=== PATIENT | female | born 1990 | race African-American/Black ===

== ENCOUNTER → 2016-12-29 | Outpatient (CLI) | payer MEDICAID ==
[~2016-12-29] MED LIST: CEPH-460 PO; CEPH500C PO; DOXY10TA PO; FERR325T PO; FOLI400T PO; IBUP-232 PO; LABE100T2 PO; NORG1TAB28 PO; ONDA1TAB16 PO; PRENTAB36 PO; SENN1TAB PO
== END ==
LOC: HPND 09:21
PROVIDERS: ATTEND Family Medicine
DX: Z34.90 Encounter for supervision of normal pregnancy, unspecified, unspecified trimester (principal)
CPT/HCPCS: 76816

== ENCOUNTER 2017-01-23 16:34 | Emergency (ER) | payer MEDICAID ==
[~2017-01-23] VITALS: Ht 165.1 cm; Wt 115.0 kg
[~2017-01-23 16:34] MED LIST changes: -CEPH-460 PO; -IBUP-232 PO; -LABE100T2 PO; -NORG1TAB28 PO; -SENN1TAB PO
--- NOTE | 2017-01-23 19:32 | PD ---
HPI Chief Complaint: Lump, Cyst, Hernia Time Seen by Provider: 19:31 Travel History International Travel<30 days: No Contact w/Intl Traveler<30days: No Traveled to known affect area: No History of Present Illness HPI Patient comes in complaining of a painful right breast lump that she first noticed 3 days ago. Patient states it has progressively got larger more painful. Patient denies any drainage with this, discharge, fevers, or doing anything for it. Patient states she is 8 months has not contacted her OB about this. Denies anything making it better. Touching makes the pain worse. Pain is pressure-like in nature. Without radiation. PFSH Past Medical History Asthma: No Blood Disorders: No Cancer: No Cardiovascular Problems: No Diminished Hearing: No Endocrine: No Gastrointestinal Disorders: No Genitourinary: No Immune Disorder: No Musculoskeletal: No Neurologic: No Psychiatric: No Reproductive: No Respiratory: No Immunizations Current: Yes Tetanus Vaccination: Unknown Influenza Vaccination: No ?: LMP: MAY : 2 Para: 0 Miscarriage: 1 : 1 Past Surgical History Oral Surgery: Yes (FRACTURES JAW WITH PLATES AND WIRES.) Pacemaker: No Other Surgery: No Social History Alcohol Use: Yes Tobacco Use: No Substance Use: No Allergies-Medications (Allergen,Severity, Reaction): Coded Allergies: No Known Allergies (Verified , 01/23/17) Reported Meds & Prescriptions Reported Meds & Active Scripts Active Keflex (Cephalexin) 500 Mg Cap 500 Mg PO Q8H 7 Days Forte ( Multivit-Min W/Fe-FA) 1 Tab Tab 1 Tab PO DAILY 90 Days Review of Systems Except as stated in HPI: all other systems reviewed are Neg Physical Exam Narrative GENERAL: Well-developed, well nourished, in no acute distress, and non-ill appearing. SKIN: Warm and dry. Tender fluctuant mass noted right breast superior to the areola. There is no drainage. Exam was performed in presence of catering staff member Elsy at all times. HEAD: Atraumatic. Normocephalic. EYES: Pupils equal and round. EOMI. No scleral icterus. No injection or drainage. ENT: No nasal bleeding or discharge. Mucous membranes pink and moist. NECK: Trachea midline. Supple. No nuclear rigidity. RESPIRATORY: No accessory muscle use. No respiratory distress. MUSCULOSKELETAL: No obvious deformities. No clubbing. No cyanosis. No edema. Full range of motion. NEUROLOGICAL: Awake and alert. No obvious cranial nerve deficits. Motor grossly within normal limits. Normal speech. PSYCHIATRIC: Appropriate mood and affect; insight and judgment normal. Data Data Last Documented VS Vital Signs Date Time Temp Pulse Resp B/P Pulse Ox O2 Delivery O2 Flow Rate FiO2 01/23/17 19:39 98.5 87 16 149/84 100 Room Air Orders Wound Culture And Gram Stain (01/23/17 19:29) MDM Medical Decision Making Medical Screen Exam Complete: Yes Emergency Medical Condition: Yes Differential Diagnosis Abscess, cellulitis, mastitis, fibroid, infected mammillary duct, other Narrative Course The patient has no evidence of significant cellulitis. There is no evidence of necrotizing fasciitis/ Forneys at this time. The patient will be discharged on antibiotics. The patient was given signs and symptoms warnings for worsening infection, such as spreading of redness, increasing pain, and/or swelling, associated heat, or fever or feels worse, and instructed to return immediately if these signs or symptoms worsen. The patient is to return in 2 days for recheck. Sooner if worsens or as needed. The patient agrees with plan. Patient in no obvious distress upon re-evaluation. Patient was asked if they wanted to speak to my attending, which the patient did not wish to do at this time. Any questions/concerns in reference to patient diagnosis/condition discussed and clarified prior to patient's discharge. Reinforced sheer importance of close follow up with patient's primary physician or primary care clinic or return here in 2 days for recheck. Instructed patient to return to ED immediately, if symptoms return/worsen. Pt showed understanding of above instructions. Further instructions and recommendations were detailed in discharge paperwork. Pt ambulated without difficulty out of ED at discharge. Procedures Procedure Narrative Verbal consent was obtained. Area was cleaned and prepped using Betadine. Area was anesthetized using ethyl chloride spray. 16-gauge needle was used to make a small puncture wound. Small amount of blood and no acute drainage was noted. Patient tolerated procedure well. There is no complications. Procedure was done in presence of catering staff member Elsy at all times. Diagnosis Primary Impression: Breast infection in Patient Instructions: Abscess (GEN), General Instructions Additional Instructions: Follow-up with your OB return in 2 days for recheck. Take all medication as prescribed. Use [id number] Tylenol as needed for pain control. Follow instructions on the packaging. Apply warm compresses to affected area frequently throughout the day. Return to the emergency department if symptoms get worse. Med/Other Pt SpecificInfo: Prescription(s) given Scripts Cephalexin (Keflex)500 Mg [id number] Mg PO Q8H 7 Days Ref 0 Prov:Monique Arteaga DO 01/23/17 Disposition: 01 DISCHARGE HOME Condition: Stable Jovanni [place] Jan 23, 2017 19:32
[2017-01-23 19:39] VITALS: BP 149/84; PULSE 87; RESP 16; TEMP 98.5; O2SAT 100
[2017-01-23] MEDS ORDERED: CEPH-460 PO (19:54)
[2017-04-05] MEDS ORDERED: NORG1TAB28 PO (16:20)
[2017-04-05] MEDS ORDERED: LABE100T2 PO (16:22)
== END 2017-01-23 20:31 | disposition home or self-care (01) ==
LOC: NEPB 16:34
DX: O91.213 Nonpurulent mastitis associated with pregnancy, third trimester (principal); B95.7 Other staphylococcus as the cause of diseases classified elsewhere; Z3A.00 Weeks of gestation of pregnancy not specified
CPT/HCPCS: 10140; 87070; 87077; 87186; 87205

== ENCOUNTER 2017-02-23 19:43 | Inpatient (IN) | payer MEDICAID ==
[2017-02-23] VITALS (18 sets, daily range): BP systolic 126–157; BP diastolic 74–116; PULSE 91–107; RESP 16–20; TEMP 97.9
[~2017-02-23 19:43] MED LIST changes: -CEPH500C PO; -DOXY10TA PO; -FERR325T PO; -FOLI400T PO; -ONDA1TAB16 PO
[2017-02-23] MEDS ORDERED: LACTATED RINGER'S 1000 ML INJ 1,000 ML IV PRN (20:09)
[2017-02-23] MEDS ORDERED: LACTATED RINGER'S 1000 ML INJ 1,000 ML IV SCH (20:09)
[2017-02-23] MEDS ORDERED: MINERAL OIL 10 ML VIAL TOPICAL PRN (20:15)
[2017-02-23] MEDS ORDERED: LIDOCAINE HCL 1% 50 ML VIAL INFIL PRN (20:15)
[2017-02-23] MEDS ORDERED: OXYTOCIN 30 UNITS-500ML PREMIX 500 ML IV ONE (20:15)
[2017-02-23] MEDS ORDERED: LIDOCAINE HCL 1% 50 ML VIAL I-DERMAL PRN (20:15)
[2017-02-23] MEDS ORDERED: SODIUM CHLORID 0.9% 500 ML INJ 500 ML IV PRN (20:15)
[2017-02-23] MEDS ORDERED: CITRIC ACID-SODIUM CITRATE LIQ 30 ML UDC PO SCH (20:15)
[2017-02-23] MEDS ORDERED: SODIUM CHLOR 0.9% 1000 ML INJ 1,000 ML IV PRN (20:29)
--- NOTE | 2017-02-23 20:44 | PD ---
HPI Chief Complaint Contractions Date Seen: Feb 23, 2017 Time Seen: 20:23 Travel History International Travel<30 Days: No Contact w/Intl Traveler<30Days: No History of Present Illness HPI 26 year old at 37/1 by second trimester US, done at 15 weeks, presents to the OB ED with a 3 hour history of contractions. Patient denies ROM, vaginal bleeding. She states the pain comes and goes and does not know how often her contractions occur. She was seen in clinic one week ago and had 300+ protein in her urine with leg swelling and a pre-eclamptic workup was ordered. The patient had these labs done today. She is hypertensive on arrival to the ED with a BP of 143/96. Patient admits to doing cocaine 2 weeks ago and flocca 1 week ago. Smokes 1/2 ppd. Daily MJ. She is GBS positive. Para: 0 : 1 History Past Medical History Medical History: Denies Significant Hx Obstetric History Obstetric History Past Surgical History Narrative Surgical Jaw surgery Family History Narrative Family History Noncontributory Social History Alcohol Use: No Tobacco Use: Yes (1/2 ppd) Substance Abuse: Yes (cocaine and flocca) Allergies-Medications (Allergen,Severity, Reaction): Coded Allergies: No Known Allergies (Verified , 02/17/17) Home Meds Active Scripts Multivit-Min W/Fe-FA ( Forte)1 Tab Tab1 Tab PO DAILY 90 Days Ref 3 Prov:Seven Dover MD 09/16/16 Discontinued Scripts Cephalexin (Keflex)500 Mg [id number] Mg PO Q8H 7 Days Ref 0 Prov:Monique Arteaga DO 01/23/17 Review of Systems General / Constitutional: No: Fever Eyes: No: Blurred Vision HENT: No: Headaches Cardiovascular: No: Chest Pain or Discomfort Respiratory: No: Short of Breath Gastrointestinal: No: Nausea, Vomiting Genitourinary: No: Dysuria Musculoskeletal: Edema, No: Weakness Skin: No Rash Neurologic: No: Weakness Endocrine: No: Polydipsia, Polyuria Hematologic/Lymphatic: No Easy Bruising Physical Exam Vital Signs Date Time Temp Pulse Resp B/P Pulse Ox O2 Delivery O2 Flow Rate FiO2 02/23/17 20:03 97.9 18 02/23/17 20:03 98 148/116 02/23/17 20:00 107 Narrative GENERAL: Well-nourished, well-developed patient. SKIN: Warm and dry. HEAD: Normocephalic and atraumatic. EYES: No scleral icterus. No injection or drainage. ENT: No nasal drainage noted. Mucous membranes pink. Airway patent. NECK: Supple, trachea midline. No JVD. CARDIOVASCULAR: Regular rate and rhythm without murmurs, gallops, or rubs. RESPIRATORY: Breath sounds equal bilaterally. No accessory muscle use. BREASTS: Bilateral exam showed no masses , no retractions, no nipple discharge. ABDOMEN/GI: Abdomen soft, non-tender, bowel sounds present, no rebound, no guarding Gravid to [37] weeks size GENITOURINARY: External Genitalia: intact with vaginal warts Cervix: [posterior] Dilatation: [1] Effacement: [70%] Station: [-2] Presentation: [v] Membranes: [intact] Uterine Contractions: [q5m] FHT's: Category: [II] Baseline: [150] Reactive: [y] Variability: [variables c contractions] Decels: [n] EXTREMITIES: No cyanosis. Bilateral LE edema. BACK: Nontender without obvious deformity. No CVA tenderness. NEUROLOGICAL: Awake and alert. Motor and sensory grossly within normal limits. Five out of 5 muscle strength in all muscle groups. Normal speech. Data Data Orders Vital Signs (Adult) .ON ADMISSION (02/23/17 20:01) ^ Labor Status (02/23/17 20:01) Urinalysis - C+S If Indicated (02/23/17 20:01) ^ Hydration (02/23/17 20:) Admit To Inpatient (02/23/17 ) Code Status (02/23/17 20:09) Vital Signs (Adult) .Per protocol (02/23/17 20:09) Activity Oob Ad Clary (02/23/17 20:09) Heart (02/23/17 20:09) Amnioinfusion (02/23/17 20:09) Urinary Catheter Management .ONCE (02/23/17 20:09) Diet Liquid (02/24/17 Breakfast) Lactated Ringer's 1000 Ml Inj (Lr 1000 M (02/23/17 20:09) Lactated Ringer's 1000 Ml Inj (Lr 1000 M (02/23/17 20:09) Sodium Chlorid 0.9% 500 Ml Inj (Ns 500 M (02/23/17 20:15) Sodium Chlor 0.9% 1000 Ml Inj (Ns 1000 M (02/23/17 20:29) Lidocaine 1% Inj (50 Ml) (Xylocaine 1% I (02/23/17 20:15) Citric Acid-Sodium Citrate Liq (Bicitra (02/23/17 20:15) Fentanyl Inj (Fentanyl Inj) (02/23/17 20:15) Fentanyl Inj (Fentanyl Inj) (02/23/17 20:15) Complete Blood Count With Diff (02/23/17 20:09) Hold Clot (02/23/17 20:09) Abo/Rh Blood Type (02/23/17 20:09) Type And Screen (02/23/17 20:09) Resp Oxygen Non Rebreathe Mask (02/23/17 ) ^ Epidural / Intrathecal Infus (02/23/17 20:09) Oxytocin 30 Units-500ml Premix (Pitocin (02/23/17 20:15) Lidocaine 1% Inj (50 Ml) (Xylocaine 1% I (02/23/17 20:15) Light Mineral Oil (Muri-Lube Oil) (02/23/17 20:15) Inpatient Certification (02/23/17 ) Comprehensive Metabolic Panel (02/23/17 20:09) Uric Acid (02/23/17 20:09) Ob/Psych Drug Screen, Urine (02/23/17 20:09) Protein Creat Ratio, Random Ur (02/23/17 20:15) MDM Medical Record Reviewed: Yes Interpretation(s) Variable decelerations HTN Drug abuse Plan 26 yo GBS positive, hypertensive with variable decelerations. GBS positive. -UA positive for UTI -Pre-eclampsia work up: CMP, CBC, Uric acid and urine protein/creatinine ratio -Vitals q 15 min -IVF hydration -Admit to L&D for continuous monitoring Diagnosis Diagnosis: Primary Impression: Uterine contractions during Additional Impressions: Hypertension during Drug abuse Condition: Stable Carolyn Bryson MD R3 Feb 23, 2017 20:44
[2017-02-23 20:57] LABS: BACTERIA, URINE RARE /hpf; BLOOD, URINE NEG (NEG); COMMENT (UR) CULTURE INDICATED; CULTURE IF INDICATED CULTURE INDICATED; GLUCOSE,URINE NEG (NEG); KETONE, URINE 150 mg/dL (NEG); MUCUS URINE MOD /lpf (OCC); NITRITE,URINE NEG (NEG); SQUAMOUS EPITHELIAL CELL URINE 20 /hpf (0-5); URINE COLOR DARK-YELLOW (YELLW/STRAW)
[2017-02-23 20:58] LABS: AUTOMATED NEUTROPHIL # 4.4 TH/MM3 (1.8-7.7); BASOPHIL # 0.1 TH/MM3 (0-0.2); BASOPHIL % 1.2 % (0.0-2.0); EOSINOPHIL % 0.5 % (0.0-4.0); HEMATOCRIT 31.3 % (35.0-46.0); HEMO FLAGS DIFF FINAL; LYMPH % 24.7 % (9.0-44.0); LYMPHOCYTE # 1.7 TH/MM3 (1.0-4.8); MEAN CELL VOLUME 83.9 FL (80.0-100.0); MEAN CORPUSCULAR HGB CONC 34.5 % (32.0-36.0); MONO % 10.7 % (0.0-8.0); NEUT % 62.9 % (16.0-70.0); PLATELET COUNT 401 TH/MM3 (150-450); RED BLOOD COUNT 3.73 MIL/MM3 (4.00-5.30); RED CELL DISTRIBUTION WIDTH 13.2 % (11.6-17.2); WHITE BLOOD COUNT 6.9 TH/MM3 (4.0-11.0)
[2017-02-23 21:01] LABS: AMPHETAMINE, URINE NEG (NEG); BARBITURATES, URINE NEG (NEG); COCAINE, URINE NEG (NEG)
[2017-02-23 21:25] LABS: ALKALINE PHOSPHATASE 167 U/L (45-117); ALT (GPT) 10 U/L (10-53); ANION GAP 12 MEQ/L (5-15); AST (GOT) 22 U/L (15-37); BICARBONATE 23.4 MEQ/L (21.0-32.0); BLOOD UREA NITROGEN 4 MG/DL (7-18); CHLORIDE 101 MEQ/L (98-107); GLOMERULAR FILTRATION RATE 159 ML/MIN (>89); SODIUM (NA) 136 MEQ/L (136-145); TOTAL BILIRUBIN ADULT 0.6 MG/DL (0.2-1.0); URIC ACID 5.5 MG/DL (2.6-6.0)
--- NOTE | 2017-02-23 21:27 | HHI.HP ---
History & Physical H&P HPI Chief Complaint Contractions Date Seen: Feb 23, 2017 Time Seen: 20:23 Travel History International Travel<30 Days: No Contact w/Intl Traveler<30Days: No History of Present Illness HPI 26 year old at 37/1 by second trimester US, done at 15 weeks, presents to the OB ED with a 3 hour history of contractions. Patient denies ROM, vaginal bleeding. She states the pain comes and goes and does not know how often her contractions occur. She was seen in clinic one week ago and had 300+ protein in her urine with leg swelling and a pre-eclamptic workup was ordered. The patient had these labs done today. She is hypertensive on arrival to the ED with a BP of 143/96. Patient admits to doing cocaine 2 weeks ago and flocca 1 week ago. Smokes 1/2 ppd. Daily MJ. She is GBS positive. Para: 0 : 1 History Past Medical History Medical History: Denies Significant Hx Obstetric History Obstetric History Past Surgical History Narrative Surgical Jaw surgery Family History Narrative Family History Noncontributory Social History Alcohol Use: No Tobacco Use: Yes (1/2 ppd) Substance Abuse: Yes (cocaine and flocca) Allergies-Medications (Allergen,Severity, Reaction): Coded Allergies: No Known Allergies (Verified , 02/17/17) Home Meds Active Scripts Multivit-Min W/Fe-FA ( Forte)1 Tab Tab1 Tab PO DAILY 90 Days Ref 3 Prov:Seven Dover MD 09/16/16 Discontinued Scripts Cephalexin (Keflex)500 Mg [id number] Mg PO Q8H 7 Days Ref 0 Prov:Monique Arteaga DO 01/23/17 Review of Systems General / Constitutional: No: Fever Eyes: No: Blurred Vision HENT: No: Headaches Cardiovascular: No: Chest Pain or Discomfort Respiratory: No: Short of Breath Gastrointestinal: No: Nausea, Vomiting Genitourinary: No: Dysuria Musculoskeletal: Edema, No: Weakness Skin: No Rash Neurologic: No: Weakness Endocrine: No: Polydipsia, Polyuria Hematologic/Lymphatic: No Easy Bruising Physical Exam Vital Signs Date Time Temp Pulse Resp B/P Pulse Ox O2 Delivery O2 Flow Rate FiO2 02/23/17 20:03 97.9 18 02/23/17 20:03 98 148/116 02/23/17 20:00 107 Narrative GENERAL: Well-nourished, well-developed patient. SKIN: Warm and dry. HEAD: Normocephalic and atraumatic. EYES: No scleral icterus. No injection or drainage. ENT: No nasal drainage noted. Mucous membranes pink. Airway patent. NECK: Supple, trachea midline. No JVD. CARDIOVASCULAR: Regular rate and rhythm without murmurs, gallops, or rubs. RESPIRATORY: Breath sounds equal bilaterally. No accessory muscle use. BREASTS: Bilateral exam showed no masses , no retractions, no nipple discharge. ABDOMEN/GI: Abdomen soft, non-tender, bowel sounds present, no rebound, no guarding Gravid to [37] weeks size GENITOURINARY: External Genitalia: intact with vaginal warts Cervix: [posterior] Dilatation: [1] Effacement: [70%] Station: [-2] Presentation: [v] Membranes: [intact] Uterine Contractions: [q5m] FHT's: Category: [II] Baseline: [150] Reactive: [y] Variability: [variables c contractions] Decels: [n] EXTREMITIES: No cyanosis. Bilateral LE edema. BACK: Nontender without obvious deformity. No CVA tenderness. NEUROLOGICAL: Awake and alert. Motor and sensory grossly within normal limits. Five out of 5 muscle strength in all muscle groups. Normal speech. Data Data Orders Vital Signs (Adult) .ON ADMISSION (02/23/17 20:01) ^ Labor Status (02/23/17 20:01) Urinalysis - C+S If Indicated (02/23/17 20:01) ^ Hydration (02/23/17 20:01) Admit To Inpatient (02/23/17 ) Code Status (02/23/17 20:09) Vital Signs (Adult) .Per protocol (02/23/17 20:09) Activity Oob Ad Clary (02/23/17 20:09) Heart (02/23/17 20:09) Amnioinfusion (02/23/17 20:09) Urinary Catheter Management .ONCE (02/23/17 20:09) Diet Liquid (02/24/17 Breakfast) Lactated Ringer's 1000 Ml Inj (Lr 1000 M (02/23/17 20:09) Lactated Ringer's 1000 Ml Inj (Lr 1000 M (02/23/17 20:09) Sodium Chlorid 0.9% 500 Ml Inj (Ns 500 M (02/23/17 20:15) Sodium Chlor 0.9% 1000 Ml Inj (Ns 1000 M (02/23/17 20:29) Lidocaine 1% Inj (50 Ml) (Xylocaine 1% I (02/23/17 20:15) Citric Acid-Sodium Citrate Liq (Bicitra (02/23/17 20:15) Fentanyl Inj (Fentanyl Inj) (02/23/17 20:15) Fentanyl Inj (Fentanyl Inj) (02/23/17 20:15) Complete Blood Count With Diff (02/23/17 20:09) Hold Clot (02/23/17 20:09) Abo/Rh Blood Type (02/23/17 20:09) Type And Screen (02/23/17 20:09) Resp Oxygen Non Rebreathe Mask (02/23/17 ) ^ Epidural / Intrathecal Infus (02/23/17 20:09) Oxytocin 30 Units-500ml Premix (Pitocin (02/23/17 20:15) Lidocaine 1% Inj (50 Ml) (Xylocaine 1% I (02/23/17 20:15) Light Mineral Oil (Muri-Lube Oil) (02/23/17 20:15) Inpatient Certification (02/23/17 ) Comprehensive Metabolic Panel (02/23/17 20:09) Uric Acid (02/23/17 20:09) Ob/Psych Drug Screen, Urine (02/23/17 20:09) Protein Creat Ratio, Random Ur (02/23/17 20:15) MDM Medical Record Reviewed: Yes Interpretation(s) Variable decelerations HTN Drug abuse Plan 26 yo GBS positive, hypertensive with variable decelerations. GBS positive. -UA positive for UTI, started Rocephin -Pre-eclampsia work up: CMP, CBC, Uric acid and urine protein/creatinine ratio -Vitals q 15 min -IVF hydration -Admit to L&D for continuous monitoring Diagnosis Diagnosis: Primary Impression: Uterine contractions during Additional Impressions: Hypertension during Drug abuse Condition: Stable Patient remained hypertensive with BP in the 140s/90s. Urine protein/cr ratio 0.45. Started on Magnesium. Progressed to 6/-1/50%, started on PCN for GBS prophylaxis. Rocephin for UTI. Anticipate . Carolyn Bryson MD R3 Feb 23, 2017 21:26
[2017-02-23 21:28] LABS: POTASSIUM 2.6 MEQ/L (3.5-5.1)
[2017-02-23] MEDS ORDERED: NIFEdipine 10 MG CAP PO PRN ×3 (21:30→22:15)
[2017-02-23] MEDS ORDERED: MAGNESIUM SULFATE 40 GM PREMIX 1,000 ML IV SCH (21:30)
[2017-02-23] MEDS ORDERED: NIFEdipine 10 MG CAP PO ONE (21:30)
[2017-02-23] MEDS ORDERED: PENICILLIN G POTASSIUM INJ 5,000,000 UNITS in SODIUM CHLORIDE 0.9% INJ 100 ML IV ONE (21:30)
[2017-02-23] MEDS ORDERED: MAGNESIUM SULFATE 4 GM PREMIX 100 ML IV ONE (21:30)
[2017-02-23] MEDS ORDERED: CALCIUM GLUCONATE 10% 1 GM/10 ML VIAL IV PUSH PRN (21:30)
[2017-02-23] MEDS ORDERED: SODIUM CHLORIDE 0.9% FLUSH 10 ML FLUSH IV FLUSH PRN (21:30)
[2017-02-23] MEDS ORDERED: LABETALOL HCL 100 MG/20 ML VIAL IV PUSH PRN (22:30)
[2017-02-23] MEDS ORDERED: fentaNYL 2MCG-BUPIV 0.125% INJ 100 ML ONE (22:40)
--- NOTE | 2017-02-23 22:55 | PD.LABORPN ---
Subjective Subjective Patient having painful contractions every 5 minutes. Mg++ has been started. Patient is uncomfortable and now requests epidural. Pen G has been started. No loss of fluid. Objective Vital Signs Vital Signs Date Time Temp Pulse Resp B/P Pulse Ox O2 Delivery O2 Flow Rate FiO2 02/23/17 22:10 102 133/84 02/23/17 22:01 100 145/98 02/23/17 22:00 18 02/23/17 21:56 100 143/95 02/23/17 21:50 129/88 02/23/17 21:50 98 02/23/17 21:46 18 02/23/17 21:46 100 144/97 02/23/17 21:30 18 02/23/17 21:30 93 146/95 02/23/17 20:58 91 02/23/17 20:58 148/90 02/23/17 20:58 20 02/23/17 20:46 101 126/104 02/23/17 20:37 98 145/86 02/23/17 20:03 97.9 18 02/23/17 20:03 98 148/116 02/23/17 20:00 107 Objective Pelvic Exam: Cervix: Soft, mid position Dilatation: 6-7cm Effacement: 100% Station: -1 Presentation: vertex Membranes: bulging Uterine Contractions: q4-5 min FHT's: Category: 1 Baseline: 140 Reactive: y Variability: mod Decels: n Assessment/Plan Assessment and Plan 26 yo GBS +, found to have induced HTN and UTI #) IUP: - Cat 1 tracing - Epidural pending - Continue expectant management #) GBS+: - Pen G q4hrs - Rupture membranes after 4hrs #) HTN: Protein/Cr 0.45. - Mg+ protocol - s/p Procardia 10mg PO x1 - Continue HTN protocol #) UTI: - Rocephin 1g daily - Urine culture pending #) Polysubstance use: - Reported hx of marijuana, cocaine, and jessica use - U-tox + for marijuana #) Hypokalemia (2.6) - KCL replacement Lan Machuca MD R3 Feb 23, 2017 22:55
[2017-02-23] MEDS ORDERED: ePHEDrine/NS 25 MG/5 ML SYR IV PRN (23:30)
[2017-02-23] MEDS ORDERED: fentaNYL 2MCG-BUPIV 0.125% 100 ML EPIDURAL SCH (23:30)
[2017-02-23] MEDS ORDERED: DO NOT ADMINISTER ANTICOAGULANTS PRN (23:30)
[2017-02-23] MEDS ORDERED: NO SYSTEM NARCOTICS PRN (23:30)
[2017-02-23] MEDS: cefTRIAXone INJ 1,000 MG in SODIUM CHLORIDE 0.9% INJ 100 ML IV SCH (23:33)
[2017-02-24] VITALS (47 sets, daily range): BP systolic 107–161; BP diastolic 38–110; PULSE 80–109; RESP 16–19; TEMP 97.6–98.2
--- NOTE | 2017-02-24 01:03 | PD.LABORPN ---
Subjective Subjective Patient is resting comfortably with epidural in place. Objective Vital Signs Laboratory Tests Test 02/23/17 20:10 White Blood Count 6.9 TH/MM3 Red Blood Count 3.73 MIL/MM3 Hemoglobin 10.8 GM/DL Hematocrit 31.3 % Mean Corpuscular Volume 83.9 FL Mean Corpuscular Hemoglobin 29.0 PG Mean Corpuscular Hemoglobin 34.5 % Concent Red Cell Distribution Width 13.2 % Platelet Count 401 TH/MM3 Mean Platelet Volume 8.1 FL Neutrophils (%) (Auto) 62.9 % Lymphocytes (%) (Auto) 24.7 % Monocytes (%) (Auto) 10.7 % Eosinophils (%) (Auto) 0.5 % Basophils (%) (Auto) 1.2 % Neutrophils # (Auto) 4.4 TH/MM3 Lymphocytes # (Auto) 1.7 TH/MM3 Monocytes # (Auto) 0.7 TH/MM3 Eosinophils # (Auto) 0.0 TH/MM3 Basophils # (Auto) 0.1 TH/MM3 CBC Comment DIFF FINAL Differential Comment Urine Color DARK-YELLOW Urine Turbidity HAZY Urine pH 7.0 Urine Specific [place] 1.028 Urine Protein 100 mg/dL Urine Glucose (UA) NEG mg/dL Urine Ketones 150 mg/dL Urine Occult Blood NEG Urine Nitrite NEG Urine Bilirubin NEG Urine Urobilinogen 8.0 MG/DL Urine Leukocyte Esterase LARGE Urine RBC 26 /hpf Urine WBC 49 /hpf Urine Squamous Epithelial 20 /hpf Cells Urine Bacteria RARE /hpf Urine Mucus MOD /lpf Microscopic Urinalysis Comment CULTURE INDICATED Urine Random Creatinine 300 MG/DL Urine Random Total Protein 134 MG/DL Urine Protein/Creatinine Ratio 0.45 Sodium Level 136 MEQ/L Potassium Level 2.6 MEQ/L Chloride Level 101 MEQ/L Carbon Dioxide Level 23.4 MEQ/L Anion Gap 12 MEQ/L Blood Urea Nitrogen 4 MG/DL Creatinine 0.55 MG/DL Estimat Glomerular Filtration 159 ML/MIN Rate Random Glucose 85 MG/DL Uric Acid 5.5 MG/DL Calcium Level 8.7 MG/DL Total Bilirubin 0.6 MG/DL Aspartate Amino Transf 22 U/L (AST/SGOT) Alanine Aminotransferase 10 U/L (ALT/SGPT) Alkaline Phosphatase 167 U/L Total Protein 7.4 GM/DL Albumin 2.3 GM/DL Urine Opiates Screen NEG Urine Barbiturates Screen NEG Urine Amphetamines Screen NEG Urine Benzodiazepines Screen NEG Urine Cocaine Screen NEG Urine Cannabinoids Screen POS Blood Type O POSITIVE Antibody Screen NEGATIVE Band and Hold HOLD CLOT IN BB Vital Signs Date Time Temp Pulse Resp B/P Pulse Ox O2 Delivery O2 Flow Rate FiO2 02/24/17 00:57 18 02/24/17 00:57 96 145/102 02/24/17 00:34 99 18 136/98 02/24/17 00:16 132/90 02/24/17 00:16 91 02/24/17 00:15 18 02/24/17 00:02 18 02/24/17 00:01 91 131/89 02/23/17 23:47 100 18 130/74 02/23/17 23:31 18 02/23/17 23:31 93 137/96 02/23/17 23:16 99 18 126/80 02/23/17 23:10 100 146/97 02/23/17 23:06 102 157/94 02/23/17 23:00 16 02/23/17 23:00 107 155/108 02/23/17 22:10 102 133/84 02/23/17 22:01 100 145/98 02/23/17 22:00 18 02/23/17 21:56 100 143/95 02/23/17 21:50 129/88 02/23/17 21:50 98 02/23/17 21:46 18 02/23/17 21:46 100 144/97 02/23/17 21:30 18 02/23/17 21:30 93 146/95 02/23/17 20:58 91 02/23/17 20:58 148/90 02/23/17 20:58 20 02/23/17 20:46 101 126/104 02/23/17 20:37 98 145/86 02/23/17 20:03 97.9 18 02/23/17 20:03 98 148/116 02/23/17 20:00 107 Objective Pelvic Exam: Cervix: midposition Dilatation: 9 Effacement: 100 Station: -1 Presentation: vertex Membranes: ruptured Uterine Contractions: q5-7min FHT's: Category: II Baseline: 145 Reactive: + Variability: moderate Decels: variable decelerations Assessment/Plan Assessment and Plan 26 yo GBS +, found to have induced HTN and UTI #) IUP: - Cat II tracing- Position changes, increase IV fluids, oxygen, consider amnioinfusion - Epidural in place - Continue expectant management - SROM with clear fluid #) GBS+: - Pen G q4hrs #) PIH: - Protein/Cr 0.45. - Mg+ protocol - s/p Procardia 10mg PO x1 - Continue HTN protocol #) UTI: - Rocephin 1g daily - Urine culture pending #) Polysubstance use: - Reported hx of marijuana, cocaine, and jessica use - U-tox + for marijuana #) Hypokalemia (2.6) - KCL replacement dw Dr. Machuca and Opal Novoa MD R2 Feb 24, 2017 01:03
[2017-02-24] MEDS ORDERED: PENICILLIN G POTASSIUM INJ 2,500,000 UNITS in SODIUM CHLORIDE 0.9% INJ 100 ML IV SCH (01:30)
[2017-02-24] MEDS ORDERED: ONDANSETRON HCL 4 MG/2 ML VIAL ONE (01:36)
[2017-02-24] MEDS ORDERED: ONDANSETRON HCL 4 MG/2 ML VIAL IV PUSH PRN (01:45)
--- NOTE | 2017-02-24 03:12 | PD.OB.DELI ---
Delivery Date: Feb 24, 2017 Anesthesia: Epidural Episiotomy: None Vaginal Delivery: Normal Presentation: Occiput anterior Nuchal Cord: x1 Delayed cord clamping (45 sec): Yes : Male One Minute : 9 Five Minute : 9 Weight: 2555g Placenta: Spontaneous delivery, Intact, 3 vessel cord Laceration: Vaginal laceration, 1 deg (3'oclock) Repair: Vicryl running (3-0) Additional Information Delivered by Dr. Opal Florez, overseen by Dr. Machuca and Lan Martin MD Feb 24, 2017 03:12
[2017-02-24] MEDS ORDERED: ZOLPIDEM TARTRATE 5 MG TAB PO PRN (03:15)
[2017-02-24] MEDS ORDERED: ACETAMINOPHEN 325 MG TAB PO PRN (03:15)
[2017-02-24] MEDS ORDERED: BENZOCAINE 20% TOPICAL SPRAY 60 ML CAN TOPICAL PRN (03:15)
[2017-02-24] MEDS ORDERED: oxyCODONE/ACETAMINOPHEN 5 MG/325 MG TAB PO PRN ×2 (03:15)
[2017-02-24] MEDS ORDERED: WITCH HAZEL 50%/GLYCERIN 12.5% 40 PAD JAR TOPICAL PRN (03:15)
[2017-02-24] MEDS ORDERED: SODIUM CHLORIDE 0.9% FLUSH 10 ML FLUSH IV FLUSH PRN (03:15)
[2017-02-24] MEDS ORDERED: ALUMINUM/MAGNESIUM/SIMETH 30 ML CUP PO PRN (03:15)
[2017-02-24] MEDS ORDERED: ONDANSETRON ODT 4 MG TAB PO PRN (03:15)
[2017-02-24] MEDS ORDERED: DOCUSATE SODIUM 50 MG/SENNA 8.6 MG TAB PO PRN (03:15)
[2017-02-24] MEDS: IBUPROFEN 600 MG TAB PO PRN (07:55)
[2017-02-24] MEDS ORDERED: SODIUM CHLORIDE 0.9% FLUSH 10 ML FLUSH IV FLUSH SCH (09:00)
[2017-02-24] MEDS: SODIUM CHLORIDE 0.9% FLUSH 10 ML FLUSH IV FLUSH SCH ×2 (09:00→21:00)
[2017-02-24] MEDS: POTASSIUM CHLOR 20 MEQ PREMIX 100 ML IV SCH ×2 (09:04→10:30)
--- NOTE | 2017-02-24 11:09 | HHI.OB ---
Subjective Remarks day # 0. Blood pressures have been ranging [id number]. Patient remains on magnesium sulfate. Decreased lochia. [place] catheter remains in place. Appetite good. No nausea or vomiting however patient remains very tired. She remains on bedrest at this time. Denies calf pain or shortness of breath. (Opal Florez MD R2) Remarks Patient seen and evaluated with resident under direct supervision, agree with assessment and plan. (Gilmer Fletcher MD) Objective Vitals/I&O Vital Signs Date Time Temp Pulse Resp B/P Pulse Ox O2 Delivery O2 Flow Rate FiO2 02/24/17 10:50 19 02/24/17 10:00 18 02/24/17 10:00 102 132/82 02/24/17 09:09 18 02/24/17 09:09 18 02/24/17 09:00 97 133/80 02/24/17 09:00 18 02/24/17 07:43 98.2 153/63 02/24/17 07:43 97 19 02/24/17 06:31 18 02/24/17 06:30 87 142/90 02/24/17 05:33 18 02/24/17 05:33 90 151/96 02/24/17 04:30 98.2 02/24/17 04:30 94 143/93 02/24/17 04:29 16 02/24/17 04:01 92 152/93 02/24/17 04:00 16 02/24/17 03:48 101 150/86 02/24/17 03:48 18 02/24/17 03:31 102 142/94 02/24/17 03:30 18 02/24/17 03:16 109 140/91 02/24/17 03:15 18 02/24/17 03:10 18 02/24/17 03:09 103 148/97 02/24/17 02:33 90 18 149/95 02/24/17 02:16 101 18 149/110 02/24/17 02:02 100 18 140/100 02/24/17 01:47 18 02/24/17 01:47 101 141/91 02/24/17 01:31 97 16 153/100 02/24/17 01:16 97.9 16 02/24/17 01:16 100 146/104 02/24/17 00:57 18 02/24/17 00:57 96 145/102 02/24/17 00:34 99 18 136/98 02/24/17 00:16 132/90 02/24/17 00:16 91 02/24/17 00:15 18 02/24/17 00:02 18 02/24/17 00:01 91 131/89 02/23/17 23:47 100 18 130/74 02/23/17 23:31 18 02/23/17 23:31 93 137/96 02/23/17 23:16 99 18 126/80 02/23/17 23:10 100 146/97 02/23/17 23:06 102 157/94 02/23/17 23:00 16 02/23/17 23:00 107 155/108 02/23/17 22:10 102 133/84 02/23/17 22:01 100 145/98 02/23/17 22:00 18 02/23/17 21:56 100 143/95 02/23/17 21:50 129/88 02/23/17 21:50 98 02/23/17 21:46 18 02/23/17 21:46 100 144/97 02/23/17 21:30 18 02/23/17 21:30 93 146/95 02/23/17 20:58 91 02/23/17 20:58 148/90 02/23/17 20:58 20 02/23/17 20:46 101 126/104 02/23/17 20:37 98 145/86 02/23/17 20:03 97.9 18 02/23/17 20:03 98 148/116 02/23/17 20:00 107 Objective Remarks GENERAL: Well-nourished, well-developed patient. CARDIOVASCULAR: Regular rate and rhythm without murmurs, gallops, or rubs. RESPIRATORY: Breath sounds equal bilaterally. No accessory muscle use. ABDOMEN/GI: Abdomen soft, non-tender. Fundus: Firm, non-tender at umbilicus. GENITOURINARY: Light to moderate bleeding. EXTREMITIES: No cyanosis or edema, non-tender, without signs of DVT. Medications and IVs Current Medications Medications (Trade) Dose Ordered Sig/Racquel Route Start Time Stop Time Status Last Admin Ceftriaxone Sodium 1000 mg/ Sodium Chloride 100 ml @ 200 mls/hr Q24H IV 02/23/17 22:00 02/23/17 23:33 (Magnesium Sulfate 40 Gm Premix) 1,000 ml @ 50 mls/hr Q20H IV 02/23/17 21:30 02/23/17 21:30 (NS Flush) 2 ml BID IV FLUSH 02/24/17 09:00 (NS Flush) 2 ml UNSCH PRN IV FLUSH 02/24/17 03:15 (Tylenol) 650 mg Q4H PRN PO 02/24/17 03:15 02/24/17 07:55 (Motrin) 600 mg Q6H PRN PO 02/24/17 03:15 02/24/17 07:55 (Percocet 5-325 Mg) 1 tab Q4H PRN PO 02/24/17 03:15 (Percocet 5-325 Mg) 2 tab Q4H PRN PO 02/24/17 03:15 (Americaine 20% Top Spr) 1 spray Q4H PRN TOPICAL 02/24/17 03:15 (Tucks Pads) 1 applic QID PRN TOPICAL 02/24/17 03:15 (Chaparrita-Colace) 2 tab Q12H PRN PO 02/24/17 03:15 (Ambien) 5 mg HS PRN PO 02/24/17 03:15 (M-M-R Ii Inj) 0.5 ml ONCE ONCE SQ 02/24/17 16:00 02/24/17 16:01 (Boostrix Inj) 0.5 ml ONCE ONCE IM 02/24/17 16:00 02/24/17 16:01 (Mag-Al Plus Susp Liq) 15 ml Q8H PRN PO 02/24/17 03:15 (Zofran Odt) 4 mg Q6H PRN PO 02/24/17 03:15 (Opal Florez MD R2) Assessment/Plan Assessment and Plan 26 y/o female who is PPD# 0 s/p . -Continue routine care. -Percocet and Motrin PRN pain. -Bed rest while on magnesium. Advised pelvic rest for 6 wks. -Re: ctrl, will discuss when patient is more awake. - Continue magnesium sulfate 24 hours for PIH. Patient's fatigue is unlikely secondary to the magnesium, as she is not exhibiting other signs/symptoms of magnesium toxicity and has adequate patellar reflexes. - Urine culture pending, continue Rocephin 1 g IV every 24 hours. - Hypokalemia of 2.6 on admission, potassium replacement in process. Repeat K+ today. - UDS positive for cannabinoids. - Anticipate D/c in 1-[address] Fletcher (Opal Florez MD R2) Opal Florez MD R2 Feb 24, 2017 11:09 Gilmer Fletcher MD Feb 24, 2017 17:18
[2017-02-24] MEDS ORDERED: MEASLES, MUMPS, RUBELLA VACCINE 0.5 ML VIAL SQ ONE (16:00)
[2017-02-24] MEDS ORDERED: DIPHTH/TETANUS/ACEL PERTUSSIS (BOOSTER) 0.5 ML VIAL/PFS IM ONE (16:00)
[2017-02-24 16:01] LABS: BICARBONATE 27.3 MEQ/L (21.0-32.0)
[2017-02-24 16:20] LABS: POTASSIUM 2.7 MEQ/L (3.5-5.1)
[2017-02-24] MEDS ORDERED: POTASSIUM CHLORIDE INJ 30 MEQ in LACTATED RINGER'S 1000 ML INJ 1,000 ML IV SCH (17:00)
[2017-02-24] MEDS: cefTRIAXone INJ 1,000 MG in SODIUM CHLORIDE 0.9% INJ 100 ML IV SCH (22:09)
[2017-02-25] VITALS (13 sets, daily range): BP systolic 134–148; BP diastolic 81–103; PULSE 76–90; RESP 16–18; TEMP 98.2–98.3
[2017-02-25] MEDS: IBUPROFEN 600 MG TAB PO PRN ×2 (00:27→10:12)
[2017-02-25] MEDS ORDERED: POTASSIUM CHLORIDE INJ 30 MEQ in LACTATED RINGER'S 1000 ML INJ 1,000 ML IV SCH (04:00)
[2017-02-25 05:51] LABS: ANION GAP 7 MEQ/L (5-15); BICARBONATE 28.7 MEQ/L (21.0-32.0); BLOOD UREA NITROGEN LESS THAN 1 MG/DL (7-18); CHLORIDE 107 MEQ/L (98-107); GLOMERULAR FILTRATION RATE 206 ML/MIN (>89); SODIUM (NA) 143 MEQ/L (136-145)
[2017-02-25 05:57] LABS: POTASSIUM 2.9 MEQ/L (3.5-5.1)
[2017-02-25 06:09] LABS: CALCIUM-PROTEIN CORRECTED 7.9 MG/DL (8.5-10.1)
--- NOTE | 2017-02-25 07:38 | HHI.OB ---
Subjective Remarks No acute issues overnight. BP ranging 130-140's/80's. Patient is up and moving around, ambulating without difficulty. She has been voiding and passing gas. She denies any chest pain, shortness of breath, fever, or chills. She is feeding via formula. Lochia is decreasing. (Opal Florez MD R2) Remarks Patient seen and evaluated with resident under direct supervision, agree with assessment and plan. (Gilmer Fletcher MD) Objective Vitals/I&O Vital Signs Date Time Temp Pulse Resp B/P Pulse Ox O2 Delivery O2 Flow Rate FiO2 02/25/17 05:02 84 145/86 02/25/17 04:00 87 134/85 02/25/17 03:00 18 02/25/17 03:00 84 142/81 02/25/17 02:00 82 134/86 02/25/17 01:00 88 136/82 02/25/17 00:22 90 147/103 02/25/17 00:21 98.2 02/25/17 00:20 85 139/102 02/25/17 00:00 16 02/25/17 00:00 84 141/102 02/24/17 23:01 95 148/76 02/24/17 22:00 83 140/96 02/24/17 22:00 18 02/24/17 21:00 97 131/70 02/24/17 20:01 97 144/92 02/24/17 19:45 16 02/24/17 19:44 98.0 02/24/17 19:00 88 128/92 02/24/17 18:00 90 139/87 02/24/17 17:00 88 161/101 02/24/17 16:01 104 142/90 02/24/17 15:00 80 143/96 02/24/17 14:01 95 133/93 02/24/17 13:01 93 107/38 02/24/17 12:51 18 02/24/17 12:00 94 120/74 02/24/17 11:32 97.6 18 02/24/17 11:00 90 134/82 02/24/17 10:50 19 02/24/17 10:00 18 02/24/17 10:00 102 132/82 4/28/17 09:09 18 02/24/17 09:09 18 02/24/17 09:00 97 133/80 02/24/17 09:00 18 02/24/17 07:43 98.2 153/63 02/24/17 07:43 97 19 Objective Remarks GENERAL: Well-nourished, well-developed patient. CARDIOVASCULAR: Regular rate and rhythm without murmurs, gallops, or rubs. RESPIRATORY: Breath sounds equal bilaterally. No accessory muscle use. ABDOMEN/GI: Abdomen soft, non-tender. Fundus: Firm, non-tender at umbilicus. GENITOURINARY: Light to moderate bleeding. EXTREMITIES: No cyanosis or edema, non-tender, without signs of DVT. Medications and IVs Current Medications Medications (Trade) Dose Ordered Sig/Racquel Route Start Time Stop Time Status Last Admin (Rocephin Inj/NS Inj) 100 ml @ 200 mls/hr Q24H IV 02/23/17 22:00 02/24/17 22:09 (NS Flush) 2 ml BID IV FLUSH 02/24/17 09:00 (NS Flush) 2 ml UNSCH PRN IV FLUSH 02/24/17 03:15 (Tylenol) 650 mg Q4H PRN PO 02/24/17 03:15 02/24/17 07:55 (Motrin) 600 mg Q6H PRN PO 02/24/17 03:15 02/25/17 00:27 (Percocet 5-325 Mg) 1 tab Q4H PRN PO 02/24/17 03:15 (Percocet 5-325 Mg) 2 tab Q4H PRN PO 02/24/17 03:15 (Americaine 20% Top Spr) 1 spray Q4H PRN TOPICAL 02/24/17 03:15 (Tucks Pads) 1 applic QID PRN TOPICAL 02/24/17 03:15 (Chaparrita-Colace) 2 tab Q12H PRN PO 02/24/17 03:15 (Ambien) 5 mg HS PRN PO 02/24/17 03:15 (Mag-Al Plus Susp Liq) 15 ml Q8H PRN PO 02/24/17 03:15 Ondansetron HCl 4 mg 4 mg Q6H PRN PO 02/24/17 03:15 (KCl Inj/Lr 1000 ml Inj) 1,015 ml @ 125 mls/hr Q8H8M IV 02/25/17 04:00 (Opal Florez MD R2) Assessment/Plan Assessment and Plan 26 y/o female who is PPD# 1 s/p . -Continue routine care. -Percocet and Motrin PRN pain. -s/p magnesium sulfate x 24 hours for PIH. - Advised pelvic rest for 6 wks. - Re: ctrl, patient opts for Depo-Provera - Urine culture shows no growth in 24 hours. DC Rocephin 1 g IV every 24 hours. - Hypokalemia of 2.6 on admission, improved to 2.7 s/p 40meq of KCl, trending up to 2.9 this AM. Will give another 40 meq KCl this AM. Etiology unclear, may be secondary to drug use as patient did admit to [facility] and cocaine. - UDS positive for cannabinoids. - Anticipate d/c tomorrow. dw Dr. Fletcher (Opal Florez MD R2) Opal Florez MD R2 Feb 25, 2017 07:38 Gilmer Fletcher MD Feb 25, 2017 09:27
[2017-02-25] MEDS ORDERED: POTASSIUM CHLORIDE 20 MEQ CONTROLLED RELEASE TAB PO ONE (07:45)
[2017-02-25] MEDS: SODIUM CHLORIDE 0.9% FLUSH 10 ML FLUSH IV FLUSH SCH (21:00)
[2017-02-26] MEDS: IBUPROFEN 600 MG TAB PO PRN (07:53)
[2017-02-26 08:00] VITALS: BP 148/92; PULSE 78; RESP 16; TEMP 98.4
--- NOTE | 2017-02-26 11:58 | HHI.DCPOC ---
Discharge Care Plan Report Symptoms to Your Doctor -Temperate above 100.5 degrees -Unusual pain or calf pain -Increased vaginal bleeding -Painful or difficulty urinating -Feelings of extreme sadness or anxiety after 2 weeks Goals to Promote Your Health * To prevent worsening of your condition and complications * To maintain your health at the optimal level Directions to Meet Your Goals Take your medications as prescribed Follow your dietary instruction Follow activity as directed Ensure plenty of rest for recovery Drink fluids for hydration Keep your appointments as scheduled Take your immunizations and boosters as scheduled If your symptoms worsen call your PCP, if no PCP go to Urgent Care Center or Emergency Room Smoking is Dangerous to Your Health. Avoid second hand smoke Call the 24-hour crisis hotline for domestic abuse at Sergio Mancia MD R2 Feb 26, 2017 11:58
--- NOTE | 2017-02-26 11:58 | HHI.OB ---
Subjective Post Day: 2 Remarks Ms. Whitman is PPD2 from ; patient has averaged SBP in 140's overnight. Patient does not report complaints at this time. Patient does not report shortness of breath or leg swelling. No dysuria or abnormal BM; patient passing gas. Patient ambulating well. Mother feeding via formula. Lochia decreasing. ( Sergio Mancia MD R2) Remarks Patient seen and evaluated with resident under direct supervision, agree with assessment and plan. (Gilmer Fletcher MD) Objective Vitals/I&O Vital Signs Date Time Temp Pulse Resp B/P Pulse Ox O2 Delivery O2 Flow Rate FiO2 02/26/17 08:00 98.4 78 16 148/92 02/25/17 17:00 82 02/25/17 16:57 148/82 02/25/17 14:37 86 16 142/86 Objective Remarks GENERAL: Well-nourished, well-developed patient. CARDIOVASCULAR: Regular rate and rhythm without murmurs, gallops, or rubs. RESPIRATORY: Breath sounds equal bilaterally. No accessory muscle use. ABDOMEN/GI: Abdomen soft, non-tender. Fundus: Firm, non-tender at umbilicus. GENITOURINARY: Light to moderate bleeding. EXTREMITIES: No cyanosis or edema, non-tender, without signs of DVT. Medications and IVs Current Medications Medications (Trade) Dose Ordered Sig/Racquel Route Start Time Stop Time Status Last Admin (NS Flush) 2 ml BID IV FLUSH 02/24/17 09:00 (NS Flush) 2 ml UNSCH PRN IV FLUSH 02/24/17 03:15 (Tylenol) 650 mg Q4H PRN PO 02/24/17 03:15 02/24/17 07:55 (Motrin) 600 mg Q6H PRN PO 02/24/17 03:15 02/26/17 07:53 (Percocet 5-325 Mg) 1 tab Q4H PRN PO 02/24/17 03:15 (Percocet 5-325 Mg) 2 tab Q4H PRN PO 02/24/17 03:15 (Americaine 20% Top Spr) 1 spray Q4H PRN TOPICAL 02/24/17 03:15 (Tucks Pads) 1 applic QID PRN TOPICAL 02/24/17 03:15 (Chaparrita-Colace) 2 tab Q12H PRN PO 02/24/17 03:15 02/25/17 10:11 (Ambien) 5 mg HS PRN PO 02/24/17 03:15 (Mag-Al Plus Susp Liq) 15 ml Q8H PRN PO 02/24/17 03:15 (Zofran Odt) 4 mg Q6H PRN PO 02/24/17 03:15 (Sergio Mancia MD R2) Assessment/Plan Problem List: (1) Hypertension during (2) Hypokalemia Assessment and Plan 26 y/o female who is PPD# 2 s/p . -Continue routine care. -Percocet and Motrin PRN pain. -Continue stool softener - Advised pelvic rest for 6 wks. - Re: ctrl, patient opts for Depo-Provera -Anticipate DC today PIH Impression: s/p magnesium sulfate x 24 hours. Persistent SBP in 140's -Will discuss with OB attending regarding initiation of antihypertensive vs. monitoring -Plan to follow-up with Dr. Florez w/in 1 week to check BP Hypokalemia Impression: Persistent decrease since admission (K 2.6); supplemented KCl -Will recheck CMP to assure resolution prior to discharge Discharge Planning Anticipate DC today (Sergio Mancia MD R2) Sergio Mancia MD R2 Feb 26, 2017 11:58 Gilmer Fletcher MD February 27, 2017 07:47
[2017-02-26] MEDS ORDERED: IBUP-232 PO (12:02)
[2017-02-26] MEDS ORDERED: SENN1TAB PO (12:02)
[2017-02-26] MEDS ORDERED: LABETALOL HCL 100 MG TAB PO SCH (12:30)
[2017-02-26 14:39] LABS: ALKALINE PHOSPHATASE 130 U/L (45-117); ALT (GPT) 11 U/L (10-53); ANION GAP 6 MEQ/L (5-15); AST (GOT) 26 U/L (15-37); BICARBONATE 29.3 MEQ/L (21.0-32.0); BLOOD UREA NITROGEN 4 MG/DL (7-18); CHLORIDE 105 MEQ/L (98-107); GLOMERULAR FILTRATION RATE 150 ML/MIN (>89); POTASSIUM 3.1 MEQ/L (3.5-5.1); SODIUM (NA) 140 MEQ/L (136-145); TOTAL BILIRUBIN ADULT 0.2 MG/DL (0.2-1.0)
[2017-02-26] MEDS ORDERED: LABE100T2 PO (15:05)
[2017-02-26 15:39] VITALS: BP 140/88
[2017-03-03 10:37] LABS: BATH SALTS (MDPV) UR NEG (NEG); ECSTASY (MDMA) UR NEG (NEG); GABAPENTIN UR NEG (NEG); HEROIN (6-ACETYLMORPHINE) UR NEG (NEG); K2 SPICE UR NEG (NEG); OBMETHADONE UR NEG (NEG); OXYCODONE (PERCODAN) NEG (NEG); PHENCYCLIDINE URINE NEG (NEG)
[2017-03-03 10:38] LABS: HYDROMORPHONE U NEG (NEG)
[2017-04-05] MEDS ORDERED: NORG1TAB28 PO (16:20)
[2017-04-05] MEDS ORDERED: LABE100T2 PO (16:22)
== END 2017-02-26 16:43 | disposition home or self-care (01) | DRG 775 ==
LOC: HOBED 19:43 → H2EB 20:43 → H1EA 02-25 06:07
PROVIDERS: ADMIT Obstetrics & Gynecology; ATTEND Obstetrics & Gynecology
PROC: 10E0XZZ Delivery of Products of Conception, External Approach (ICD-10-PCS; principal; 2017-02-23)
PROC: 00HU33Z Insertion of Infusion Device into Spinal Canal, Percutaneous Approach (ICD-10-PCS; 2017-02-23)
PROC: 3E0R3CZ (ICD-10-PCS; 2017-02-23)
PROC: 0HQ9XZZ Repair Perineum Skin, External Approach (ICD-10-PCS; 2017-02-23)
DX: O76 Abnormality in fetal heart rate and rhythm complicating labor and delivery (principal); N39.0 Urinary tract infection, site not specified; O99.324 Drug use complicating childbirth; O13.4 Gestational [pregnancy-induced] hypertension without significant proteinuria, complicating childbirth; Z37.0 Single live birth; O69.81X0 Labor and delivery complicated by cord around neck, without compression, not applicable or unspecified; E87.6 Hypokalemia; O99.824 Streptococcus B carrier state complicating childbirth; Z3A.37 37 weeks gestation of pregnancy
CPT/HCPCS: 80048; 80053; 80307; 81001; 82570; 84155; 84156; 84550; 85025; 86850; 86900; 86901; 87086; 90715; 99285; G0481; J0696; J2405; J2540; J3010; J3475; J3480; J7120

== ENCOUNTER 2018-02-17 17:00 | Emergency (ER) | payer MEDICAID ==
[~2018-02-17] VITALS: Ht 165.1 cm; Wt 102.0 kg
[~2018-02-17 17:00] MED LIST changes: +LABE100T2 PO; +NORG1TAB28 PO
[2018-02-17 17:02] VITALS: BP 132/96; PULSE 92; RESP 19; TEMP 97.7; O2SAT 98
--- NOTE | 2018-02-17 17:10 | PD ---
HPI Chief Complaint: Abdominal Pain Time Seen by Provider: 17:10 Travel History International Travel<30 days: No Contact w/Intl Traveler<30days: No Traveled to known affect area: No History of Present Illness HPI 27-year-old female came to the emergency room with history of lower abdominal pain that is like cramps and bilateral. It started this morning. Patient seems uncomfortable. She says that her period started last night. Usually she does not get such severe cramps with her menstrual cycle. Her last menstrual cycle was in November. Upon asking she said there is a chance she could be . Vital signs are stable. No history of nausea vomiting. No history of fever or chills. No aggravating or relieving factors identified. Throat no radiation of the pain. PFSH Past Medical History Narrative Medical List of her past medical, surgical, social and family history is reviewed from the nursing note Asthma: No Blood Disorders: No Cancer: No Cardiovascular Problems: No Diminished Hearing: No Endocrine: No Gastrointestinal Disorders: No Genitourinary: No Immune Disorder: No Musculoskeletal: No Neurologic: No Psychiatric: No Reproductive: No Respiratory: No Immunizations Current: Yes ?: Unknown LMP: 11/2017 : 2 Para: 0 Miscarriage: 1 : 1 Past Surgical History Oral Surgery: Yes (FRACTURES JAW WITH PLATES AND WIRES.) Pacemaker: No Other Surgery: No Social History Alcohol Use: No Tobacco Use: Yes (1/2 ppd) Substance Use: No Allergies-Medications (Allergen,Severity, Reaction): Coded Allergies: No Known Allergies (Verified Adverse Reaction, Unknown, 02/17/18) Comments No known drug allergies. Reported Meds & Prescriptions Reported Meds & Active Scripts Active Ibuprofen 600 Mg Tab 600 Mg PO Q6H PRN Macrobid (Nitrofurantoin Monoh/Nitrofur Macro) 100 Mg Cap 100 Mg PO BID 5 Days Labetalol (Labetalol HCl) 100 Mg Tab 100 Mg PO BID Ortho Tri-Cyclen Lo (Norgestimate-Ethinyl Estradiol) 0.18/0.215/0.25 mg-25 Mcg Tab 1 Tab PO DAILY Forte ( Multivit-Min W/Fe-FA) 1 Tab Tab 1 Tab PO DAILY 90 Days Narrative Medication List of her home medications reviewed from nursing note Review of Systems Except as stated in HPI: all other systems reviewed are Neg Genitourinary: Positive: Pelvic Pain Physical Exam Narrative GENERAL: Awake, alert, anxious, moderate distress, obese SKIN: Focused skin assessment warm/dry. HEAD: Atraumatic. Normocephalic. EYES: Pupils equal and round. No scleral icterus. No injection or drainage. ENT: No nasal bleeding or discharge. Mucous membranes pink and moist. NECK: Trachea midline. No JVD. CARDIOVASCULAR: Regular rate and rhythm. No murmur appreciated. RESPIRATORY: No accessory muscle use. Clear to auscultation. Breath sounds equal bilaterally. GASTROINTESTINAL: Abdomen soft, non-tender, nondistended. Hepatic and splenic margins not palpable. MUSCULOSKELETAL: No obvious deformities. No clubbing. No cyanosis. No edema. NEUROLOGICAL: Awake and alert. No obvious cranial nerve deficits. Motor grossly within normal limits. Normal speech. PSYCHIATRIC: Appropriate mood and affect; insight and judgment normal. Data Data Last Documented VS Vital Signs Date Time Temp Pulse Resp B/P (MAP) Pulse Ox O2 Delivery O2 Flow Rate FiO2 02/17/18 17:52 18 02/17/18 17:52 97 Nasal Cannula 2.00 02/17/18 17:02 97.7 92 132/96 (108) Orders Orders Urinalysis - C+S If Indicated (02/17/18 17:18) Ed Urine Pregnancytest Poc (02/17/18 17:18) Basic Metabolic Panel (Bmp) (02/17/18 17:43) Complete Blood Count With Diff (02/17/18 17:43) Iv Access Insert/Monitor (02/17/18 17:43) Ecg Monitoring (02/17/18 17:43) Oximetry (02/17/18 17:43) Sodium Chloride 0.9% Flush (Ns Flush) (02/17/18 17:45) Ketorolac Inj (Toradol Inj) (02/17/18 17:45) Urine Culture (02/17/18 17:25) Nitrofurantoin Monohyd Macrocr (Macrobid (02/17/18 18:15) Nitrofurantoin Monohyd Macrocr (Macrobid (02/17/18 18:30) Ed Discharge Order (02/17/18 18:34) Labs Laboratory Tests Test 02/17/18 17:25 02/17/18 17:58 Urine Color YELLOW Urine Turbidity HAZY Urine pH 5.5 Urine Specific [place] 1.030 Urine Protein 30 mg/dL Urine Glucose (UA) NEG mg/dL Urine Ketones NEG mg/dL Urine Occult Blood LARGE Urine Nitrite NEG Urine Bilirubin NEG Urine Urobilinogen 2.0 MG/DL Urine Leukocyte Esterase SMALL Urine RBC /hpf Urine WBC 16 /hpf Urine Squamous Epithelial Cells 9 /hpf Urine Amorphous Sediment RARE Urine Mucus MOD /lpf Microscopic Urinalysis Comment CULTURE INDICATED White Blood Count 12.2 TH/MM3 Red Blood Count 4.21 MIL/MM3 Hemoglobin 11.3 GM/DL Hematocrit 33.6 % Mean Corpuscular Volume 79.9 FL Mean Corpuscular Hemoglobin 26.8 PG Mean Corpuscular Hemoglobin Concent 33.5 % Red Cell Distribution Width 16.7 % Platelet Count 436 TH/MM3 Mean Platelet Volume 7.6 FL Neutrophils (%) (Auto) 71.5 % Lymphocytes (%) (Auto) 20.0 % Monocytes (%) (Auto) 6.2 % Eosinophils (%) (Auto) 1.4 % Basophils (%) (Auto) 0.9 % Neutrophils # (Auto) 8.8 TH/MM3 Lymphocytes # (Auto) 2.4 TH/MM3 Monocytes # (Auto) 0.8 TH/MM3 Eosinophils # (Auto) 0.2 TH/MM3 Basophils # (Auto) 0.1 TH/MM3 CBC Comment DIFF FINAL Differential Comment Blood Urea Nitrogen 13 MG/DL Creatinine 0.86 MG/DL Random Glucose 99 MG/DL Calcium Level 8.3 MG/DL Sodium Level 140 MEQ/L Potassium Level 4.4 MEQ/L Chloride Level 111 MEQ/L Carbon Dioxide Level 21.8 MEQ/L Anion Gap 7 MEQ/L Estimat Glomerular Filtration Rate 94 ML/MIN [facility] Medical Decision Making Medical Screen Exam Complete: Yes Emergency Medical Condition: Yes Medical Record Reviewed: Yes Differential Diagnosis Dysmenorrhea, UTI, ectopic Narrative Course 6:32 PM blood test results are back. Patient has slight leukocytosis. UA has innumerable RBCs which could be from her vaginal bleeding. She does have some pyuria and given her symptoms have given her Macrobid and I would like to go ahead and treated. Patient was medicated with Toradol for pain. I am comfortable discharging her home at this point. Procedures EKG Prior to Arrival: No Diagnosis Primary Impression: Pelvic pain in female Additional Impressions: Dysmenorrhea UTI (urinary tract infection) Qualified Codes: N39.0 - Urinary tract infection, site not specified; R31.9 - Hematuria, unspecified Referrals: Primary Care Physician Additional Instructions: Take the medication as per the prescription direction. Follow-up with your primary care. Med/Other Pt SpecificInfo: Prescription(s) given Scripts Ibuprofen (Ibuprofen) 600 Mg Tab 600 MG PO Q6H Y for Pain/Inflammation, #40 TAB 0 Refills Prov: Patricia Lomax MD 02/17/18 Nitrofurantoin Monohydrate Macrocrystals (Macrobid) 100 Mg Cap 100 MG PO BID for Infection for 5 Days, #10 CAP 0 Refills Prov: Patricia Lomax MD 02/17/18 Disposition: 01 DISCHARGE HOME Condition: Stable Patricia Lomax MD Feb 17, 2018 17:10
[2018-02-17] MEDS ORDERED: SODIUM CHLORIDE 0.9% FLUSH 10 ML FLUSH IV FLUSH PRN (17:45)
[2018-02-17] MEDS ORDERED: KETOROLAC TROMETHAMINE 30 MG/ML (IVP) VIAL IVP ONE (17:45)
[2018-02-17 17:52] VITALS: O2SAT 97
[2018-02-17 18:01] LABS: AMORPHOUS SEDIMENT, URINE RARE; BILIRUBIN, URINE NEG (NEG); BLOOD, URINE LARGE (NEG); GLUCOSE,URINE NEG (NEG); KETONE, URINE NEG (NEG); MUCUS URINE MOD /lpf (OCC); NITRITE,URINE NEG (NEG); PH, URINE 5.5 (5.0-8.5); SQUAMOUS EPITHELIAL CELL URINE 9 /hpf (0-5); URINE COLOR YELLOW (YELLW/STRAW); URINE LEUKOCYTE ESTERASE SMALL (NEG)
[2018-02-17 18:12] LABS: AUTOMATED NEUTROPHIL # 8.8 TH/MM3 (1.8-7.7); BASOPHIL # 0.1 TH/MM3 (0-0.2); BASOPHIL % 0.9 % (0.0-2.0); EOSINOPHIL # 0.2 TH/MM3 (0-0.4); EOSINOPHIL % 1.4 % (0.0-4.0); HEMATOCRIT 33.6 % (35.0-46.0); HEMOGLOBIN 11.3 GM/DL (11.6-15.3); LYMPHOCYTE # 2.4 TH/MM3 (1.0-4.8); MEAN CELL VOLUME 79.9 FL (80.0-100.0); MEAN CORPUSCULAR HEMOGLOBIN 26.8 PG (27.0-34.0); MEAN CORPUSCULAR HGB CONC 33.5 % (32.0-36.0); MEAN PLATELET VOLUME 7.6 FL (7.0-11.0); MONO % 6.2 % (0.0-8.0); MONOCYTE # 0.8 TH/MM3 (0-0.9); NEUT % 71.5 % (16.0-70.0); PLATELET COUNT 436 TH/MM3 (150-450); RED BLOOD COUNT 4.21 MIL/MM3 (4.00-5.30); RED CELL DISTRIBUTION WIDTH 16.7 % (11.6-17.2); WHITE BLOOD COUNT 12.2 TH/MM3 (4.0-11.0)
[2018-02-17] MEDS ORDERED: NITROFURANTOIN MONOHYD MACROCR 100 MG CAP PO ONE ×2 (18:15→18:30)
[2018-02-17 18:26] LABS: BICARBONATE 21.8 MEQ/L (21.0-32.0); CALCIUM 8.3 MG/DL (8.5-10.1); CREATININE 0.86 MG/DL (0.50-1.00)
[2018-02-17] MEDS ORDERED: IBUP-232 PO (18:34)
[2018-02-17] MEDS ORDERED: MACR100C2 PO (18:34)
== END 2018-02-17 18:57 | disposition home or self-care (01) ==
LOC: NEPD 17:00
DX: N94.6 Dysmenorrhea, unspecified (principal); N39.0 Urinary tract infection, site not specified; B96.89 Other specified bacterial agents as the cause of diseases classified elsewhere; F17.210 Nicotine dependence, cigarettes, uncomplicated
CPT/HCPCS: 80048; 81001; 84703; 85025; 87086; 96374; 99284; J1885